=== PATIENT | male | born 1940 | race Caucasian/White ===

== ENCOUNTER 2024-06-01 13:20 | Emergency (ER) | payer MEDICARE ==
[2024-06-01] MEDS ORDERED: Ipratropium/Albuterol 3 ML NEB ONE (13:57)
[2024-06-01] MEDS ORDERED: Ibuprofen 200 MG TAB ONE (13:57)
[2024-06-01] MEDS ORDERED: Dexamethasone 10 MG/ML VIAL ONE (13:57)
[2024-06-01] MEDS ORDERED: Cefepime 1 GM VIAL ONE (13:58)
[2024-06-01] MEDS ORDERED: Sodium Chloride 0.9% 100 ML ONE (13:58)
[2024-06-01 14:16] LABS: INR-International Normal Ratio 1.2; PTT 33.9 sec (22.9-36.1); Prothrombin Time 15.6 sec (12.0-14.7)
[2024-06-01 14:26] LABS: Troponin I 0.099 ng/mL (< 0.028)
[2024-06-01 14:30] LABS: #Lymphocytes 0.6 thou/uL (1.20-3.40); #Monocytes 0.1 thou/uL (0.11-0.59); #Neutrophils 5.6 thou/uL (1.40-6.50); %Basophils 0.4 % (0.0-1.0); %Lymphocytes 9.5 % (21.0-51.0); %Monocytes 2.2 % (0.0-10.0); %Neutrophils 87.9 % (42.0-75.0); Hematocrit 36.3 % (42.0-52.0); Hemoglobin 12.6 g/dL (14.0-18.0); Mean Corpuscular HGB CONC 34.8 g/dL (32.0-36.0); Mean Corpuscular Hemoglobin 30.4 pg (27.0-31.0); Mean Corpuscular Volume 87.6 fl (78.0-98.0); Mean Platelet Volume 6.4 fL (7.4-10.4); Platelet Count 192 10x3/uL (130-400); RBC Distribution Width 11.7 % (11.5-14.5); Red Blood Cell (RBC) Count 4.15 mill/uL (4.70-6.10); White Blood Cell (WBC) Count 6.3 10x3/uL (4.8-10.8)
[2024-06-01 14:37] LABS: ALT (SGPT) 60 U/L (Less than 45); AST (SGOT) 133 U/L (11-34); Albumin 3.4 g/dL (3.1-4.5); Alkaline Phosphatase 69 U/L (40-110); Anion Gap 20 mmol/L (10-20); BUN (Urea Nitrogen) 27 mg/dL (8.4-25.7); Bilirubin, Total 0.8 mg/dL (0.3-1.2); CK (CPK) 4907 U/L (30-200); Calc. Creatinine Clearance 0 mL/min (70-130); Calcium 8.4 mg/dL (7.8-10.44); Carbon Dioxide 12 mmol/L (23-31); Chloride 104 mmol/L (98-107); Estimated GFR 34; Globulin 2.4 g/dL (2.4-3.5); Glucose 286 mg/dL (83-110); Lipase 42 U/L (8-78); Potassium 3.9 mmol/L (3.5-5.1); Protein, Total 5.8 g/dL (5.8-8.1); Sodium 132 mmol/L (136-145)
[2024-06-01 14:54] LABS: CO2 Tension (PvCO2) 22.8 mmHg (42.0-51.0)
[2024-06-01 14:55] LABS: Base Excess-Venous -8.6 mmol/L (-2.0 to 3.0); Bicarbonate (HCO3v) 14.2 mmol/L (22.0-28.0); Sodium 134 mmol/L (138-145); vO2 Saturation-calc 88.1 % (60.0-85.0)
[2024-06-01 14:56] LABS: Calcium, Ionized 1.11 mmol/L (1.15-1.33); Chloride 104 mmol/L (98-107); Potassium 3.8 mmol/L (3.5-5.1); T. Carbon Dioxide 14.9 mmol/L (22.0-28.0)
[2024-06-01] MEDS ORDERED: Vancomycin 1 GM VIAL ONE (15:14)
[2024-06-01] MEDS ORDERED: Doxycycline 100 MG CAP ONE (16:31)
[2024-06-01 17:16] LABS: Critical Call Chem-Lactate ERS.KNS @ 1715
[2024-06-01 17:19] LABS: Bilirubin Negative (Negative); Blood, Urine Large (Negative); Clarity Clear (Clear); Glucose, Urine (Dipstick) Negative (Negative); Ketone, Urine Negative (Negative); Leukocyte Negative (Negative); Nitrite Negative (Negative); Protein, Urine (Dipstick) 100 mg/dL (Neg-Trace); Specific Gravity, Urine 1.015 (1.005-1.030); Urobilinogen 0.2 mg/dL (Less than 2)
[2024-06-01 17:26] LABS: Bacteria/HPF 1+ HPF (None Seen); CAUTI Indications for Culture Dysuria,urgency,freq; Squamous Epithelial 0-3 HPF (0-3); WBC/HPF 0-3 HPF (0-3)
[2024-06-01 17:27] LABS: Urine Culture Reflex No No
== END 2024-06-01 17:27 | disposition short-term general hospital (02) ==
LOC: BURERS 13:20
DX: A41.9 Sepsis, unspecified organism (principal); R65.20 Severe sepsis without septic shock; J18.9 Pneumonia, unspecified organism; R09.02 Hypoxemia; Z87.09 Personal history of other diseases of the respiratory system
CPT/HCPCS: 36415; 71045; 71250; 80053; 81001; 82330; 82550; 82803; 83605; 83690; 83880; 84484; 85025; 85610; 85730; 87040; 87400; 87426; 93005; 96365; 96367; 96375; J0692; J1100; J3370; J7620